=== PATIENT | male | born 1945 | race Caucasian/White ===

== ENCOUNTER 2022-02-12 15:52 | Emergency (ER) | payer MEDICARE, SELFPAY ==
[2022-02-12 15:56] VITALS: BP 114/96; PULSE 65; RESP 16; TEMP 36.7; O2SAT 100; BMI 20.7
[2022-02-12 16:48] VITALS: BP 137/51; PULSE 56; RESP 18; O2SAT 98
--- NOTE | 2022-02-12 16:50 | CT_ITS ---
STUDY: CT BRAIN WITHOUT CONTRAST REASON FOR EXAM: Male, 76 years old. fall/confusion RADIATION DOSAGE (If Supplied By Facility): CTDIvol = ( 47.06 ) mGy, DLP = ( 943.26 ) mGycm TECHNIQUE: Transaxial CT imaging of the brain was performed without administration of intravenous contrast material. Individualized dose optimization techniques were used for this CT. COMPARISON: No relevant priors. FINDINGS: Normal soft tissue structures. Normal calvarium. Calcific plaquing of the cavernous carotids. Mild atrophy and periventricular white matter ischemic changes.. Normal basal ganglia and thalami. Normal brainstem. Normal cerebellum. There is no intracranial hemorrhage. There are no findings of an acute ischemic infarction. Postsurgical changes of the orbits. Normal visualized paranasal sinuses. CT/Brain/Head without Contrast IMPRESSION: Mild atrophy and periventricular white matter ischemic change. No evidence for acute intracranial hemorrhage Electronically Signed: Bradley Peoples MD at 17:18 EST ,
--- NOTE | 2022-02-12 16:51 | EKG12_ITS ---
Test Reason : NEURO S/SX Blood Pressure : / mmHG Vent. Rate : 057 BPM Atrial Rate : 057 BPM P-R Int : 168 ms QRS Dur : 094 ms QT Int : 436 ms P-R-T Axes : 079 -19 027 degrees QTc Int : 424 ms Sinus bradycardia Otherwise normal ECG Confirmed by NEO ROMO, GAVIN ([id number]), social media editor KIRILL VENTURA ([id number]) on 02/15/2022 11:24:45 AM Referred By: Confirmed By:GAVIN LARSON MD
[2022-02-12 16:53] VITALS: BMI 19.9
[2022-02-12] MEDS: 0.9% Normal Saline 1,000 ML 1000 ML IV (16:54)
--- NOTE | 2022-02-12 16:54 | EDS_ITS ---
HPI <CONNOR Pena - Last Filed: 02/12/22 18:52> History of Present Illness Chief Complaint: Neuro S/Sx Narrative Narrative: 76-year-old male with history of osteoporosis, hypertension hyperlipidemia presents to the emergency department for ongoing confusion. Patient states that the patient has been more confused especially over the last 3 or 4 days. This is his third visit to the emergency department. Patient was seen twice at [facility] and released home. Per the , the patient is taking medications that he is not supposed to take at the wrong times, he has had multiple falls with bruising, she is concerned that he may be having a stroke. The patient does admit that he is more confused than usual however he thinks that his is overreacting. Patient denies any weakness. Patient states at that his gait is unsteady. Patient does have bruising. Patient has intermittent chronic pain however nothing specific. [facility] <CONNOR Pena - Last Filed: 02/12/22 18:52> [facility] Medical History (Updated 02/12/22 @ 18:51 by CONNOR Pena) Fall HTN (hypertension) Osteoporosis Home Medications aspirin 81 mg capsule 81 mg PO DAILY 02/12/22 [History Last Taken Unknown] benazepril 20 mg tablet 20 mg PO DAILY 02/12/22 [History Last Taken Unknown] famotidine 40 mg tablet 40 mg PO DAILY 02/12/22 [History Last Taken Unknown] lovastatin 20 mg tablet 20 mg PO QHS 02/12/22 [History Last Taken Unknown] ondansetron HCl 4 mg tablet 4 mg PO Q8H PRN Nausea 02/12/22 [History Last Taken Unknown] Allergy/AdvReac Type Severity Reaction Status Date / Time No Known Allergies Allergy Verified 02/12/22 15:56 Social History Smoking Status: Current every day smoker tobacco type: cigarettes ROS <CONNOR Pena - Last Filed: 02/12/22 18:52> ROS ED ROS Narrative Constitutional: Negative for fever, chills, weight loss. Positive for weakness Eyes: Negative for vision loss, vision change, double vision ENT: Negative for any sore throat, ear pain, congestion Cardiovascular: Negative for any chest pain, tightness, palpitations Respiratory: Negative for any cough, sputum production, hemoptysis, dyspnea, dyspnea on exertion, orthopnea Gastrointestinal: Negative for any abdominal pain, nausea, vomiting, diarrhea, constipation, blood in stool, blood in vomit : Negative for any urinary frequency, dysuria, retention, blood in urine Muscle skeletal: Negative for any muscle joint pain, stiffness, myalgias, arthralgias, neck pain, back pain Neurological: Negative for any headache, syncope, numbness or tingling, dizziness. Positive feeling of unsteady gait Skin: Negative for any rashes, lumps, itching, abrasions, lacerations Psychiatric: Negative for any depression, anxiety, stress, suicidal ideation, homicidal ideation Hematologic: Negative for any easy bruising, excessive bruising, easy bleeding Allergies: Negative for any eczema, hives, rash EXAM <CONNOR Pena - Last Filed: 02/12/22 18:52> Physical Exam Narrative Exam Narrative: Vital signs reviewed. HEET: Head normocephalic atraumatic, TMs clear bilaterally. Posterior pharynx is clear, moist mucous membranes. Nares clear bilaterally. Patient some bruising to the right orbit. Neck: Supple with no lymphadenopathy or tenderness. No signs of meningismus, negative jolt sign. Cardiac: Regular rate and rhythm no murmurs gallops or rubs, equal peripheral pulses bilaterally. Respiratory: Lungs clear to auscultation bilaterally. No chest tenderness. Abdomen: Soft, nontender, nondistended. No abdominal bruit or pulsatile masses. No hepatosplenomegaly Extremities: No peripheral edema, no signs of gross trauma or deformity. Active full range of motion of all extremities. Neuro: Cranial nerves II through XII intact, no focal neurological deficits. NIH score 0. Equal pulses throughout. No neurological focal deficits. Skin: Clean dry and intact with no rash, purpura, petechiae, vesicles or pustules. Backs/flank: No CVA tenderness, no midline spinal tenderness, no deformity. Psych: Normal mood and affect. No SI, HI or acute psychosis. Const Vital Signs: 02/12/22 15:56 02/12/22 16:48 02/12/22 16:55 Temperature 98.0 F Temperature Source Temporal Pulse Rate 65 56 L Respiratory Rate 16 18 Respiratory Effort Normal Non-Labored Respiratory Pattern Normal Blood Pressure 114/96 H 137/51 H Blood Pressure Mean 102 79 Pulse Ox 100 98 Oxygen Delivery Method Room Air Room Air 11/25/22 17:52 02/12/22 19:06 Temperature Temperature Source Pulse Rate 63 Respiratory Rate 14 Respiratory Effort Respiratory Pattern Blood Pressure 139/55 H 158/62 H Blood Pressure Mean 83 Pulse Ox 99 Oxygen Delivery Method Room Air <Dr. Stanford Sainz MD - Last Filed: 02/12/22 19:32> Physical Exam Const Vital Signs: 02/12/22 15:56 02/12/22 16:48 02/12/22 16:55 Temperature 98.0 F Temperature Source Temporal Pulse Rate 65 56 L Respiratory Rate 16 18 Respiratory Effort Normal Non-Labored Respiratory Pattern Normal Blood Pressure 114/96 H 137/51 H Blood Pressure Mean 102 79 Pulse Ox 100 98 Oxygen Delivery Method Room Air Room Air 02/12/22 17:52 02/12/22 19:06 Temperature Temperature Source Pulse Rate 63 Respiratory Rate 14 Respiratory Effort Respiratory Pattern Blood Pressure 139/55 H 158/62 H Blood Pressure Mean 83 Pulse Ox 99 Oxygen Delivery Method Room Air MDM <CONNOR Pena - Last Filed: 02/12/22 18:52> [facility] Lab Data Labs: Laboratory Results - last 24 hr 02/12/22 02/12/22 02/12/22 16:55 16:55 16:55 WBC 7.3 RBC 3.92 L Hgb 12.1 L Hct 37.0 L MCV 94.4 H MCH 30.9 MCHC 32.7 RDW Std Deviation 52.1 H RDW Coeff of Joshua 15.1 H Plt Count 351 MPV 8.9 Immature Gran % (Auto) 1.000 H Neut % (Auto) 80.0 H Lymph % (Auto) 10.7 L Tompkins % (Auto) 6.6 Eos % (Auto) 1.4 Baso % (Auto) 0.3 Absolute Neuts (auto) 5.8 Absolute Lymphs (auto) 0.78 L Nucleated RBC % 0 Sodium 137 Potassium 4.0 Chloride 105 Carbon Dioxide 29.0 Anion Gap 3 L BUN 20 H Creatinine 0.86 Estim Creat Clear Calc 53.52 Est GFR (MDRD) Af Amer 111 Est GFR (MDRD) Non-Af 91 BUN/Creatinine Ratio 23.3 H Glucose 100 Calcium 8.8 Total Bilirubin 0.30 AST 34 ALT 43 Alkaline Phosphatase 61 Troponin I High Sens 10 Total Protein 7.0 Albumin 2.9 L Globulin 4.1 Albumin/Globulin Ratio 0.7 L Lipase 54 L Urine Color Straw Urine Clarity Clear Urine pH 6.0 Ur Specific Mes[place] 1.010 Urine Protein Negative Urine Glucose (UA) Normal Urine Ketones Negative Urine Occult Blood Negative Urine Nitrite Negative Urine Bilirubin Negative Urine Urobilinogen Normal Ur Leukocyte Esterase Negative Urine RBC 0 SEEN Urine WBC 0-5 SEEN Ur Squamous Epith Cells 0 SEEN Urine Bacteria 0 SEEN Urine Mucus 0 SEEN Radiography Diagnostic Testing: Clinical Impression(s) from Imaging Studies Brain CT 02/12/22 16:50 IMPRESSION: Mild atrophy and periventricular white matter ischemic change. 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 No acute cardiopulmonary pathology Electronically Signed: Bradley Peoples MD at 17:45 EST , Treatment and Re-Evaluation Narrative: Patient appears well, patient appears nontoxic, vital signs are stable. Patient presents to the emergency department for frequent falls, periods of confusion per the . Patient's physical examination was grossly unremarkable. NIH score 0. Patient was alert and orient x4 here. Patient has steady gait here. Patient did receive a full work-up. EKG was unremarkable. Patient did receive a CT scan of the brain which showed no acute findings. Patient's chest x-ray interpreted by ER present shows mild COPD however no acute cardiopulmonary pathology. Patient's laboratory studies show slight anemia with a hemoglobin of 12.1, patient's chemistries were unremarkable patient's lipase was negative. Patient did receive COVID-19, influenza test, this was negative. Patient urinalysis was negative for any infection. At this time, there is no evidence of CVA/TIA, cardiopulmonary disease, infectious disease process. Patient's amb ulatory gait was stable here. At this time, I believe the patient is suffering from early dementia and the is frustrated. She will follow-up closely with her PCP. They instructed to return for any worsening symptoms. <Dr. Stanford Sainz MD - Last Filed: 02/12/22 19:32> [facility] Narrative Medical decision making narrative: I have personally performed a face to face assessment of the patient and have reviewed the ZULEMA Note. I performed a substantive portion of the visit including all aspects of the following. My wilburn findings include: History is remarkable for increased confusion over the past several weeks to months. He has outpatient test scheduled. This includes a stress test. He has been more forgetful. He does not have history of Alzheimer's dementia. He denies alcohol use. He denies any constitutional symptoms. Nuys weight loss or weight gain. Nuys double vision blurred vision loss of vision. Nuys trouble speech or swallowing. Denies problems with coordination or balance. He denies paresthesia, anesthesia medics upper lower extremity exam Exam is unremarkable. HEENT exams unremarkable. There is no nystagmus. There is no APD. Pupils equal round reactive. Extract muscle intact. Neck is supple. There is no carotid bruits. Heart lung exam is unremarkable. Alert oriented. Motor 5/5. Sensation intact. DTR symmetric no clonus Babinski sign. There is no dysmetria. Romberg with eyes open and close normal. The eye askew test and the hint test were negative. Gait was observed and normal. Tandem gait is normal. He is able to walk on heels and toes and able to walk backwards without difficulty. Medical Decision Making patient had a metabolic infectious work-up obtained that was unremarkable including CAT scan. and patient were told that his confusion is not because of stroke but for other reasons. Other additions or changes: Reviewed midlevel's chart and no corrections. Lab Data Labs: Laboratory Results - last 24 hr 02/12/22 02/12/22 02/12/22 16:55 16:55 16:55 WBC 7.3 RBC 3.92 L Hgb 12.1 L Hct 37.0 L MCV 94.4 H MCH 30.9 MCHC 32.7 RDW Std Deviation 52.1 H RDW Coeff of Joshua 15.1 H Plt Count 351 MPV 8.9 Immature Gran % (Auto) 1.000 H Neut % (Auto) 80.0 H Lymph % (Auto) 10.7 L Tompkins % (Auto) 6.6 Eos % (Auto) 1.4 Baso % (Auto) 0.3 Absolute Neuts (auto) 5.8 Absolute Lymphs (auto) 0.78 L Nucleated RBC % 0 Sodium 137 Potassium 4.0 Chloride 105 Carbon Dioxide 29.0 Anion Gap 3 L BUN 20 H Creatinine 0.86 Estim Creat Clear Calc 53.52 Est GFR (MDRD) Af Amer 111 Est GFR (MDRD) Non-Af 91 BUN/Creatinine Ratio 23.3 H Glucose 100 Calcium 8.8 Total Bilirubin 0.30 AST 34 ALT 43 Alkaline Phosphatase 61 Troponin I High Sens 10 Total Protein 7.0 Albumin 2.9 L Globulin 4.1 Albumin/Globulin Ratio 0.7 L Lipase 54 L Urine Color Straw Urine Clarity Clear Urine pH 6.0 Ur Specific [place] 1.010 Urine Protein Negative Urine Glucose (UA) Normal Urine Ketones Negative Urine Occult Blood Negative Urine Nitrite Negative Urine Bilirubin Negative Urine Urobilinogen Normal Ur Leukocyte Esterase Negative Urine RBC 0 SEEN Urine WBC 0-5 SEEN Ur Squamous Epith Cells 0 SEEN Urine Bacteria 0 SEEN Urine Mucus 0 SEEN Radiography Diagnostic Testing: Clinical Impression(s) from Imaging Studies Brain CT 02/12/22 16:50 IMPRESSION: Mild atrophy and periventricular white matter ischemic change. 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 No acute cardiopulmonary pathology Electronically Signed: Bradley Peoples MD at 17:45 EST , Discharge Plan Triage Chief Complaint: Neuro S/Sx ED Midlevel Provider: Papa Pantoja ED Provider: Stanford Sainz Dx/Rx/DC Orders Clinical Impression: Dementia, CHI (closed head injury) Instructions: Dementia Caregiver Tips, Delirium and Dementia, ED Head Injury (Adult) Prescriptions: No Action ondansetron HCl 4 mg tablet 4 mg PO Q8H PRN (Reason: Nausea) Label Comments: TAKE 1 TABLET BY MOUTH EVERY 6 HOURS FOR 5 DAYS NEEDED FOR NAUSEA AND VOMITING famotidine 40 mg tablet 40 mg PO DAILY benazepril 20 mg tablet 20 mg PO DAILY Label Comments: 1 TABLET BY MOUTH EVERY DAY FOR 5 DAYS STOP AMLODIPINE WHILE ON PAXLOVID lovastatin 20 mg tablet 20 mg PO QHS aspirin 81 mg Capsule 81 mg PO DAILY Primary Care Provider: Robert Pires Referrals: Robert Pires DO [Primary Care Provider] - Activity Restrictions/Additional Instructions: You need to follow-up with your PCP regarding these personality changes. Disposition Disposition: Home, Self Care Discharge Date/Time: 02/12/22 19:07
[2022-02-12 17:05] LABS: Bacteria 0 SEEN /hpf (None Seen); Mucous, Urine 0 SEEN /hpf (<or=2+); Red Blood Cells-Urine 0 SEEN /hpf (0-5); Squamous Epithelial Cells - UA 0 SEEN /hpf (0-5)
--- NOTE | 2022-02-12 17:05 | RAD_ITS ---
STUDY: X-RAY CHEST REASON FOR EXAM: Male, 76 years old. Confusion TECHNIQUE: AP portable COMPARISON: None. FINDINGS: Lungs are mildly hyperinflated but clear.. Mild chronic interstitial and emphysematous changes in the upper lobes. Tiny calcified granuloma in right upper lobe There is no demonstrated pleural abnormality. Normal size heart. Normal mediastinum and cara. Normal visualized pulmonary arteries. Mildly calcified aortic arch and descending thoracic aorta. Dorsal spine demonstrates degenerative change. Normal visualized ribs, clavicles, and shoulders. There is no demonstrated abnormality of the visualized soft tissue structures of the upper abdomen. 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 No acute cardiopulmonary pathology Electronically Signed: Bradley Peoples MD at 17:45 EST ,
[2022-02-12 17:07] LABS: Absolute Lymphocyte Count 0.78 X10^3/uL (0.83-4.51); Absolute Neutrophil Count 5.8 X10^3/uL (2.0-7.7); Basophil# 0.02 X10^3/uL; Basophil% 0.3 % (0-1); Eosinophils% 1.4 % (0-5); Hemoglobin 12.1 g/dL (13.0-16.5); Lymphocyte # 0.78 X10^3/ul (0.83-4.51); Lymphocyte % 10.7 % (19-41); Mean Corp Hgb Conc 32.7 g/dL (32-36); Mean Corpuscular Hgb 30.9 pg (27.0-32.0); Mean Corpuscular Volume 94.4 fL (80-94); Mean Platelet Vol. 8.9 fl (6.2-12.0); Monocyte# 0.48 X10^3/uL; Monocyte% 6.6 % (0-10); NRBC Flagged by Analyzer 0 % (0-5); Neutrophil # 5.84 X10^3/uL (2.7-7.7); Platelet Count 351 K/mm3 (150-450); RBC Distribution Width CV 15.1 % (11.6-14.6); RBC Distribution Width SD 52.1 fl (35.1-43.9); Red Blood Count 3.92 M/mm3 (4.6-6.2); White Blood Count 7.3 K/mm3 (4.4-11.0)
[2022-02-12 17:16] LABS: Color, Urine Straw (Yellow); Glucose, Dipstick Normal (Normal); Ketone-Dipstick Negative (Negative); Leukocyte Esterase-Dipstick Negative /ul (Negative); Nitrite-Dipstick Negative (Negative); Occult Blood-Urine Negative /ul (Negative); Protein-Dipstick Negative (Negative); Urine Bilirubin Dipstick Negative (Negative); Urine Clarity Clear (Clear); Urine Urobilinogen Normal (Normal)
[2022-02-12 17:30] LABS: ALB/GLOB Ratio 0.7 RATIO (0.9-2.4); AST(SGOT) 34 U/L (15-37); Alanine Aminotransfer ALT/SGPT 43 U/L (16-61); Albumin, Serum 2.9 g/dL (3.2-5.0); Alkaline Phosphatase 61 U/L (45-117); Anion Gap 3 (5-15); BUN 20 mg/dL (7-18); BUN/Creat Ratio 23.3 RATIO (10-20); Calcium,Total 8.8 mg/dL (8.5-10.1); Chloride 105 mmol/L (98-107); Creatinine, Serum 0.86 mg/dL (0.70-1.30); EST Glomerular Filtration Rate 91 mL/min (>60); Est Glom Filt Rate - Afr Amer 111 mL/min (>60); Estimated Creatinine Clearance 53.52 ml/min; Globulin 4.1 g/dL (2.2-4.2); Glucose 100 mg/dL (74-106); Lipase 54 U/L (73-393); Sodium Level 137 mmol/L (136-145); Troponin-I HS 10 pg/mL (3.0-78.0)
[2022-02-12 17:38] LABS: White Blood Cells 0-5 SEEN /hpf (0-5)
[2022-02-12 17:52] VITALS: BP 139/55; PULSE 63; RESP 14; O2SAT 99
[2022-02-12 19:06] VITALS: BP 158/62
== END 2022-02-12 19:07 | disposition home or self-care (01) ==
PROVIDERS: Nurse Practitioner; Emergency Provider Emergency Medicine; PCP Student in an Organized Health Care Education/Training Program; Visit Provider Emergency Medicine
DX: S09.90XA Unspecified injury of head, initial encounter (principal); F03.90 Unspecified dementia, unspecified severity, without behavioral disturbance, psychotic disturbance, mood disturbance, and anxiety; R26.81 Unsteadiness on feet; F17.210 Nicotine dependence, cigarettes, uncomplicated; G89.29 Other chronic pain; R41.0 Disorientation, unspecified; I10 Essential (primary) hypertension; Z79.82 Long term (current) use of aspirin; X58.XXXA Exposure to other specified factors, initial encounter
CPT/HCPCS: 70450; 71045; 80053; 81001; 83690; 84484; 85025; 87428; 93005; 96360; 99283; J7030; A4216

== ENCOUNTER 2022-02-14 13:53 | Emergency (ER) | payer MEDICARE, SELFPAY ==
[2022-02-14 13:54] VITALS: BP 112/49; PULSE 79; RESP 20; TEMP 37.1; O2SAT 96; BMI 19.7
--- NOTE | 2022-02-14 14:30 | EKG12_ITS ---
Test Reason : SOB Blood Pressure : / mmHG Vent. Rate : 067 BPM Atrial Rate : 067 BPM P-R Int : 166 ms QRS Dur : 092 ms QT Int : 402 ms P-R-T Axes : 083 -34 032 degrees QTc Int : 424 ms Normal sinus rhythm Left axis deviation Incomplete right bundle branch block Abnormal ECG Confirmed by NEO ROMO, GAVIN ([id number]), editor dictionary KIRILL VENTURA ([id number]) on 02/15/2022 12:06:12 PM Referred By: Confirmed By:GAVIN LARSON MD
--- NOTE | 2022-02-14 14:31 | ED.VIS.DYS ---
HPI History of Present Illness Chief Complaint: Shortness of Breath Informant: patient and spouse/S.O. Onset/Context/Timing Onset: Today and Yesterday Context: gradual Timing: Intermittent Current Severity: Mild Maximum Severity: Mild Worsened by: Coughing Associated Symptoms cough; Negative for rhinorrhea, ear pain, fever, sore throat, subjective, clear sputum, white sputum, yellow sputum or green sputum Chest Pain: Positive for None Narrative Narrative: 76-year-old male history of COPD and a right bundle branch block. States since last night he has had more shortness of breath. No chest pain. No fever or chills. No hemoptysis. No leg pain or swelling. Denies any nausea or vomiting or diarrhea. No melena. PE Risk Factors: Negative for Cancer, OCP + Smoking + > 35, Prior DVT or PE, Recent immobilization, Recent surgery or Recent travel Prior similar symptoms: Yes Recent Illness/Hospitalization: No PFSH PFSH Medical History (Updated 02/14/22 @ 15:[address] Jace Saenz MD) COPD (chronic obstructive pulmonary disease) Fall HTN (hypertension) Osteoporosis Home Medications aspirin 81 mg capsule 81 mg PO DAILY 02/12/22 [History Last Taken Unknown] benazepril 20 mg tablet 20 mg PO DAILY 02/12/22 [History Last Taken Unknown] famotidine 40 mg tablet 40 mg PO DAILY 02/12/22 [History Last Taken Unknown] lovastatin 20 mg tablet 20 mg PO QHS 02/12/22 [History Last Taken Unknown] ondansetron HCl 4 mg tablet 4 mg PO Q8H PRN Nausea 02/12/22 [History Last Taken Unknown] prednisone 20 mg tablet 40 mg PO DAILY 7 days #14 tabs 02/14/22 [Rx Last Taken Unknown] Allergy/AdvReac Type Severity Reaction Status Date / Time No Known Allergies Allergy Verified 02/14/22 13:54 Social History Smoking Status: Current every day smoker tobacco type: cigarettes ROS ROS ED ROS Narrative Dyspnea. Review of Systems ROS Unobtainable: Denies due to encephalopathy Constitutional Constitutional ED: Denies chills or fever(s) Eyes Eyes: Denies blurry vision ENT ENT ED: Denies ear pain Cardiovascular Cardiovascular: Denies chest pain or palpitations Respiratory/Chest Respiratory/Chest: Reports cough and dyspnea Gastrointestinal Gastrointestinal: Denies abdominal pain Genitourinary Genitourinary ED: Denies dysuria or hematuria Musculoskeletal Musculoskeletal: Denies arthralgias or back pain Integumentary Denies abscess Neurologic Neurologic: Denies headache(s) Psychiatric Psychiatric: Denies anxiety Endocrine Endocrinology: Denies cold intolerance Hematologic/Lymphatic Hematologic/Lymphatic: Denies easy bleeding or easy bruising Allergic/Immunologic Allergic/Immunologic ED: Denies mouth swelling or tongue swelling EXAM Physical Exam Narrative Exam Narrative: -year-old male vital signs stable afebrile. Pulse ox 96% on room air no signs hypoxia. No distress. present in room. H EENT exam unremarkable. Neck nontender no JVD no lymphadenopathy. Lungs prolonged expiratory phase. Few scattered expiratory wheezes. No rales or rhonchi. No distress. Heart regular rate and rhythm rate about 80 no murmur. Abdomen soft nontender. Moving all 4 extremities. Calves are nontender without edema or cords. Back nontender. Neurologically is awake and alert. Const Vital Signs: 02/14/22 13:54 02/14/22 14:43 02/14/22 14:50 Temperature 98.7 F Temperature Source Temporal Pulse Rate 79 67 Respiratory Rate 20 H 20 H Respiratory Effort Short of Breath Respiratory Depth Normal Respiratory Pattern Irregular Blood Pressure 112/49 L Blood Pressure Mean 70 Pulse Ox 96 Oxygen Delivery Method Room Air Oxygen Flow Rate (L/min) 02/14/22 14:51 02/14/22 15:31 Temperature Temperature Source Pulse Rate 70 Respiratory Rate 20 H Respiratory Effort Respiratory Depth Respiratory Pattern Blood Pressure 129/51 H Blood Pressure Mean 77 Pulse Ox Oxygen Delivery Method Room Air Oxygen Flow Rate (L/min) 96 Positive well nourished and well developed; Negative for obese, cachectic, contractures or unkempt General Appearance ED: well developed and NAD; Negative for unkempt, cachectic, contractures or pallor Nutritional Appearance: Negative for cachectic or obese HEENT Reports moist mucous membranes; Denies dry mucous membranes atraumatic; Negative for trauma or tenderness Mouth ED: No dry mucous membranes Mouth: No dry mucous membranes Eyes PERRL and EOMs intact bilaterally General Eye ED: Negative for pale conjunctiva or scleral icterus Neck no lymphadenopathy, supple, no meningeal signs and no JVD General: Negative for tenderness Lymph Lymphatic: Negative for other Resp normal respiratory effort and No clear to auscultation bilaterally Resp Narrative: Right lower expiratory phase. Few scattered expiratory wheezes. Effort and Inspection: Negative for pain with movement Auscultation: wheezes; Negative for rales, rhonchi or diminished lung sounds Cardio regular rate, regular rhythm, S1 normal heart sound, S2 normal heart sound and no murmurs Rate: Negative for bradycardia or tachycardic GI non-tender, non-distended and no masses Auscultation: normoactive bowel sounds Palpation: soft; Negative for tender or guarding Back/Spine no CVA tenderness and normal to inspection General Back: Negative for CVA tenderness or tenderness Extremity normal to inspection General Extremety ED: Negative for edema or tenderness General Extremity: Negative for edema Neuro oriented x3 and CN's II-XII intact bilaterally Sensorium / Orientation: alert, oriented to person, oriented to place and oriented to time; Negative for orientation impaired, confused, lethargic or stuporous Speech: speech normal Motor Exam: strength 5/5 throughout Psych mental status grossly normal Appearance: Negative for unkempt Attitude: No agitated Mood & Affect: Negative for depressed Thought Process: normal thought process Skin no wounds and skin turgor normal General Skin Exam: Negative for jaundice or pallor Lesions: no lesions Rashes: no rashes Trauma: Negative for abrasion or laceration MDM MDM MDM Narrative Medical decision making narrative: 76-year-old male with shortness of breath history of COPD. Screening labs, x-ray and EKG being performed. Treated with oral prednisone, DuoNeb and albuterol aerosols. Repeat exam patient doing well at 3:38 PM. Patient doing well. Breathing improved after aerosols and steroid. Discharged home with prescription for prednisone. Lab Data Attestation: I reviewed the patient's lab results. Lab results narrative: CBC shows white count 13.3. H&H 11.4 and 33.5. Platelets 325. Electrolytes unremarkable gap of 5 BUN of 25 creatinine 0.8. Glucose 162. Troponin 7. Chest x-ray chronic changes. Patient has a baseline anemia on prior labs. Labs: Laboratory Results - last 24 hr 02/14/22 02/14/22 14:50 14:50 WBC 13.3 H RBC 3.60 L Hgb 11.4 L Hct 33.5 L MCV 93.1 MCH 31.7 MCHC 34.0 RDW Std Deviation 51.5 H RDW Coeff of Joshua 14.9 H Plt Count 325 MPV 9.2 Immature Gran % (Auto) 0.500 Neut % (Auto) 88.6 H Lymph % (Auto) 6.7 L Sebastian % (Auto) 3.5 Eos % (Auto) 0.5 Baso % (Auto) 0.2 Absolute Neuts (auto) 11.8 H Absolute Lymphs (auto) 0.89 Nucleated RBC % 0 Sodium 138 Potassium 4.0 Chloride 106 Carbon Dioxide 27.0 Anion Gap 5 BUN 25 H Creatinine 0.82 Estim Creat Clear Calc 55.66 Est GFR (MDRD) Af Amer 117 Est GFR (MDRD) Non-Af 97 BUN/Creatinine Ratio 30.5 H Glucose 162 H Calcium 8.3 L Troponin I High Sens 7 Radiography Chest X-Ray - ED: 1 View, Read by ED Physician, Read by Radiologist, Heart, Lungs, Mediastinum, Bony Structures, No Acute Disease and Chronic Changes Diagnostic Testing: Clinical Impression(s) from Imaging Studies Chest X-Ray 02/14/22 15:05 IMPRESSION: No acute cardiopulmonary process identified. Chronic changes of the lungs. Electronically Signed: Lolita Tobias MD at 15:13 EST , X-ray, portable, single view interpreted both by myself and radiologist shows chronic changes consistent with COPD. No acute infiltrate. Rhythm Strip Rhythm Strip: Sinus Rhythm Rate: 67 Ectopy: None EKG Initial EKG: Interpretation: Sinus Rhythm and No Acute Injury Pattern Comments: Normal sinus rhythm rate of 67 no acute signs of OH or ischemia. Discharge Plan Triage Chief Complaint: Shortness of Breath ED Provider: Jace Saenz Dx/Rx/DC Orders Clinical Impression: COPD with acute exacerbation Instructions: ED COPD Flare Prescriptions: New prednisone 20 mg tablet 40 mg PO DAILY 7 Days Qty: 14 0RF No Action ondansetron HCl 4 mg tablet 4 mg PO Q8H PRN (Reason: Nausea) Label Comments: TAKE 1 TABLET BY MOUTH EVERY 6 HOURS FOR 5 DAYS NEEDED FOR NAUSEA AND VOMITING famotidine 40 mg tablet 40 mg PO DAILY benazepril 20 mg tablet 20 mg PO DAILY Label Comments: 1 TABLET BY MOUTH EVERY DAY FOR 5 DAYS STOP AMLODIPINE WHILE ON PAXLOVID lovastatin 20 mg tablet 20 mg PO QHS aspirin 81 mg Capsule 81 mg PO DAILY Primary Care Provider: Robert Pires Referrals: Robert Pires, [Primary Care Provider] - 1 Week if not improving Activity Restrictions/Additional Instructions: Prednisone daily take at lunchtime for the next 7 days. Follow-up with your doctor as needed. Use your inhaler at home as needed. Disposition Disposition: Home, Self Care
[2022-02-14] MEDS: Ipratropium/Albuterol Sulfate 3 ML AMPUL.NEB INHALATION (14:42)
[2022-02-14] MEDS: Albuterol 2.5 MG/3 ML VIAL.NEB. INHALATION (14:42)
[2022-02-14 14:43] VITALS: PULSE 67; RESP 20
[2022-02-14] MEDS: predniSONE 20 MG Tablet 60 MG PO (14:49)
[2022-02-14 14:58] LABS: Absolute Lymphocyte Count 0.89 X10^3/uL (0.83-4.51); Absolute Neutrophil Count 11.8 X10^3/uL (2.0-7.7); Basophil# 0.02 X10^3/uL; Basophil% 0.2 % (0-1); Eosinophil# 0.06 X10^3/uL; Eosinophils% 0.5 % (0-5); Hematocrit 33.5 % (40-54); Hemoglobin 11.4 g/dL (13.0-16.5); Lymphocyte # 0.89 X10^3/ul (0.83-4.51); Lymphocyte % 6.7 % (19-41); Mean Corpuscular Hgb 31.7 pg (27.0-32.0); Mean Corpuscular Volume 93.1 fL (80-94); Mean Platelet Vol. 9.2 fl (6.2-12.0); Monocyte# 0.46 X10^3/uL; Monocyte% 3.5 % (0-10); NRBC Flagged by Analyzer 0 % (0-5); Neutrophil # 11.79 X10^3/uL (2.7-7.7); Neutrophil % 88.6 % (47-70); Platelet Count 325 K/mm3 (150-450); RBC Distribution Width CV 14.9 % (11.6-14.6); RBC Distribution Width SD 51.5 fl (35.1-43.9); White Blood Count 13.3 K/mm3 (4.4-11.0)
--- NOTE | 2022-02-14 15:05 | RAD_ITS ---
HISTORY: chest pain. TECHNIQUE: XR Chest 1 View. COMPARISON: 02/12/2022. FINDINGS: CARDIOMEDIASTINAL BORDERS: Cardiac silhouette within normal limits in size. Mediastinal contour unremarkable with calcification of the aorta. LUNGS: Hyperinflated lungs with mild chronic interstitial scarring. PLEURA: No pleural effusion or pneumothorax seen. OSSEOUS STRUCTURES: Degenerative change. RAD/Chest 1 View (Portable) IMPRESSION: No acute cardiopulmonary process identified. Chronic changes of the lungs. Electronically Signed: Lolita Tobias MD at 15:13 EST ,
[2022-02-14 15:25] LABS: Anion Gap 5 (5-15); BUN 25 mg/dL (7-18); BUN/Creat Ratio 30.5 RATIO (10-20); Calcium,Total 8.3 mg/dL (8.5-10.1); Chloride 106 mmol/L (98-107); Creatinine, Serum 0.82 mg/dL (0.70-1.30); EST Glomerular Filtration Rate 97 mL/min (>60); Est Glom Filt Rate - Afr Amer 117 mL/min (>60); Estimated Creatinine Clearance 55.66 ml/min; Glucose 162 mg/dL (74-106); Sodium Level 138 mmol/L (136-145); Troponin-I HS (w/2H Reflex) 7 pg/mL (3.0-78.0)
[2022-02-14 15:31] VITALS: BP 129/51; PULSE 70; RESP 20
[2022-02-14 16:03] VITALS: BP 124/56; PULSE 66; RESP 27
[2022-02-14 16:54] LABS: Reflex Troponin-HS? (from REC) Y
== END 2022-02-14 16:08 | disposition home or self-care (01) ==
PROVIDERS: Emergency Provider Emergency Medicine; PCP Student in an Organized Health Care Education/Training Program; Visit Provider Emergency Medicine
DX: J44.1 Chronic obstructive pulmonary disease with (acute) exacerbation (principal); I10 Essential (primary) hypertension; F17.210 Nicotine dependence, cigarettes, uncomplicated; R06.02 Shortness of breath; I45.10 Unspecified right bundle-branch block
CPT/HCPCS: 71045; 80048; 84484; 85025; 93005; 94640; 99284; A4216

== ENCOUNTER → 2022-04-13 | Outpatient (CLI) | payer MEDICARE, SELFPAY ==
--- NOTE | 2022-04-14 11:28 | PFT ---
INTRODUCTION: The patient is a 77-year-old male that presents for pulmonary function studies secondary to a diagnosis of emphysema. Respiratory therapy reported good patient effort. Bronchodilators were used during testing. INTERPRETATION: Forced expiration spirometry demonstrates the presence of a severe large airways obstructive ventilatory defect. There was a significant response to aerosolized bronchodilators. Spirograms are of fair quality but do not plateau indicating slow emptying of the lungs. Body plethysmography was performed and demonstrated lung volumes to be within normal limits. Diffusing capacity by single breath CO was also within normal limits. IMPRESSION: Partially reversible severe large airways obstructive ventilatory defect with preserved lung volumes and diffusing capacity.
== END | disposition home or self-care (01) ==
PROVIDERS: PCP Student in an Organized Health Care Education/Training Program; Referring Provider Internal Medicine; Visit Provider Internal Medicine
DX: J43.9 Emphysema, unspecified (principal)
CPT/HCPCS: 94060; 94726; 94729

== ENCOUNTER → 2022-07-28 | Outpatient (CLI) | payer MEDICARE, SELFPAY ==
--- NOTE | 2022-07-28 09:50 | RAD_ITS ---
STUDY: X-RAY - ESOPHAGUS (BARIUM SWALLOW) WITH FLUOROSCOPY REASON FOR EXAM: Male, 77 years old. GERD TECHNIQUE: 17 view(s) of the esophagus were obtained following swallowing of barium. FLUOROSCOPY TIME (if supplied): (35 seconds.) minutes/seconds. 3.3 mGy COMPARISON: None. FINDINGS: There is no demonstrated esophageal foreign body. There is no demonstrated stricture or mucosal abnormality. Normal gastroesophageal junction, without a demonstrated hiatal hernia. No evidence of gastroesophageal reflux. The patient ingested a 12 mm tablet of barium. The tablet is trapped at the gastroesophageal junction. There is atherosclerotic calcification of the aortic arch with tortuosity of the descending aorta. Normal visualized pulmonary parenchyma. There are diffuse degenerative changes of the visualized thoracic spine. RAD/Esophagus Dual Contrast IMPRESSION: The patient ingested a 12 mm tablet of barium. The tablet is trapped at the gastroesophageal junction. No evidence of gastroesophageal reflux. Electronically Signed: Jarett Klein MD at 15:23 EDT ,
== END | disposition home or self-care (01) ==
LOC: RAD 09:38
PROVIDERS: PCP Student in an Organized Health Care Education/Training Program; Referring Provider Otolaryngology; Visit Provider Otolaryngology
DX: K21.9 Gastro-esophageal reflux disease without esophagitis (principal); R49.0 Dysphonia
CPT/HCPCS: 74221

== ENCOUNTER → 2022-09-30 | Outpatient (CLI) | payer MEDICARE, OTHER, SELFPAY ==
--- NOTE | 2022-10-01 09:21 | PFT ---
INTRODUCTION: The patient is a 77-year-old male that presents for pulmonary function studies secondary to a diagnosis of COPD. Respiratory therapy reported good patient effort. Bronchodilators were used during testing. INTERPRETATION: Forced expiration spirometry demonstrated the presence of a moderately severe large airways obstructive ventilatory defect. There was no significant response to aerosolized bronchodilators. Spirograms are of fair quality but do not plateau indicating slow emptying of the lungs. There has been interval improvement in the patient's PFT since March 2022. IMPRESSION: Irreversible moderately severe large airways obstructive ventilatory defect.
== END | disposition home or self-care (01) ==
PROVIDERS: PCP Student in an Organized Health Care Education/Training Program; Referring Provider Internal Medicine; Visit Provider Internal Medicine
DX: J44.9 Chronic obstructive pulmonary disease, unspecified (principal)
CPT/HCPCS: 94060

== ENCOUNTER → 2022-10-28 | Outpatient (CLI) | payer MEDICARE, OTHER, SELFPAY ==
--- NOTE | 2022-10-28 13:11 | CT_ITS ---
INDICATION: smoker quit 03/2022 1PPD X 20YRS, 3 CIGARS/DAY X 25 YRS, HTN, ASTHMA, COPD, EMPHYSEMA, SOB ON EXCERTION EXAMINATION: - CT Low Dose CT Chest for Lung Cancer Screening A radiation dose optimization technique was used for this scan. Radiation CTDIvol 2.01 Radiation DLP 76.00 COMPARISON: Chest radiograph 02/14/2022. FINDINGS: Low dose Noncontrast serial CT axial images through the chest with coronal and sagittal reformatted series. MEDIASTINUM: Dense coronary artery atherosclerotic calcifications. Noncontrast mediastinum is otherwise unremarkable. LUNG PARENCHYMA: No acute pulmonary parenchymal abnormality. Severe diffuse emphysematous lung changes. Thin linear biapical scarring. 4 mm posterior left apical pulmonary nodule on axial image 31 of series 2. PLEURA: No pleural effusion. No pneumothorax. BONES: Osseous structures are unremarkable for age. UPPER ABDOMEN: Unremarkable. CT/Low Dose CT Lung Screening IMPRESSION: Severe diffuse emphysematous lung changes. 4 mm posterior left apical pulmonary nodule as above. Thin linear biapical scarring. Lung-RADS CATEGORY 2: Benign Appearance Nodule. Annual screening with low dose CT in 12 months. Electronically Signed: Isaac Warner MD at 0:38 EDT ,
== END | disposition home or self-care (01) ==
PROVIDERS: PCP Student in an Organized Health Care Education/Training Program; Referring Provider Nurse Practitioner Acute Care; Visit Provider Nurse Practitioner Acute Care
DX: Z12.2 Encounter for screening for malignant neoplasm of respiratory organs (principal); F17.210 Nicotine dependence, cigarettes, uncomplicated
CPT/HCPCS: 71271

== ENCOUNTER → 2023-10-21 | Outpatient (CLI) | payer MEDICARE, OTHER, SELFPAY ==
[2023-10-21 12:50] LABS: Anion Gap 5 (5-15); BUN 35 mg/dL (7-18); BUN/Creat Ratio 32.4 RATIO (10-20); Calcium,Total 9.9 mg/dL (8.5-10.1); Chloride 109 mmol/L (98-107); Cholesterol 176 mg/dL (200); Creatinine, Serum 1.08 mg/dL (0.70-1.30); EST Glomerular Filtration Rate 70 mL/min (>60); Est Glom Filt Rate - Afr Amer 85 mL/min (>60); Glucose 105 mg/dL (74-106); High Density Lipoprotein 54 mg/dL; PSA,Total - Annual Screen 3.48 ng/mL (0.00-4.00); Potassium 4.1 mmol/L (3.5-5.1); Sodium Level 140 mmol/L (136-145); Triglycerides 81 mg/dL; Very Low Density Lipoprotein 16 mg/dL (5-40)
== END | disposition home or self-care (01) ==
LOC: MFPLAB 10:08
PROVIDERS: PCP Family Medicine; Visit Provider Family Medicine
DX: Z00.00 Encounter for general adult medical examination without abnormal findings (principal); Z12.5 Encounter for screening for malignant neoplasm of prostate; Z13.6 Encounter for screening for cardiovascular disorders
CPT/HCPCS: 36415; 80048; 80061; 84153; G0103

== ENCOUNTER → 2023-11-02 | Outpatient (CLI) | payer MEDICARE, OTHER, SELFPAY ==
--- NOTE | 2023-11-02 13:55 | CT_ITS ---
STUDY: LOW DOSE CT LUNG CANCER SCREENING REASON FOR EXAM: Male, 78 years old. Patient smoked 1 pack per day for 59 years. COPD. Shortness of breath. RADIATION DOSAGE (If Supplied By Facility): CTDIvol = ( 1.59 ) mGy, DLP = ( 58.78 ) mGycm TECHNIQUE: No contrast was administered. Low dose technique was utilized (average mAS-38 and kVp 120). 1.25 mm axial source images with a slice interval of 1.25-mm were reconstructed in lung windows. 2.5 mm axial source images with a slice interval of 2.5-mm were reconstructed in lung windows. 5.0 mm axial source images with a slice interval of 5.0-mm were reconstructed in soft tissue windows. COMPARISON: Comparison is made with prior study October 28, 2022. NODULES: Stable 3 mm noncalcified nodule in the peripheral lateral aspect of the left upper lobe. Emphysema: Hyperinflation. Diffuse emphysematous changes with the bullous formation more prominent in the upper lobes. Stable scarring in the upper lobes. Endobronchial lesion: None Aorta: Atherosclerotic plaque formation of the aortic arch. CORONARY ARTERIES: Coronary artery calcification is seen. Heart: Unremarkable Pulmonary artery: Unremarkable Mediastinal nodes: Unremarkable Other chest and abdominal findings: CT/Low Dose CT Lung Screening IMPRESSION: Lung-RADS category 2 - Continue annual screening with LDCT in 12 months. IMPORTANT NOTES FOR USE: ACR Lung-RADS Version 1.1 Assessment Categories Release Date: 2018 Category: Coded 0-4 bases on nodule(s) with highest degree of suspicion. Negative screen is defined as categories 1 and 2; a positive screen is defined as categories 3 and 4. Category 3 and 4A nodules that are unchanged on interval CT should be coded as category 2, and individuals returned to screening in 12 months. Category 4X: Category 3 or 4 nodules with additional imaging findings that increase the suspicion of lung cancer, such as spiculation, GGN that doubles in size in 1 year, enlarged lymph notes, etc. Category Modifiers: S (significant finding unrelated to lung cancer) Electronically Signed: Jarett Klein MD at 10:23 EDT ,
== END | disposition home or self-care (01) ==
LOC: CT 13:50
PROVIDERS: PCP Family Medicine; Referring Provider Nurse Practitioner Acute Care; Visit Provider Nurse Practitioner Acute Care
DX: F17.210 Nicotine dependence, cigarettes, uncomplicated (principal)
CPT/HCPCS: 71271

== ENCOUNTER → 2024-03-28 | Outpatient (CLI) | payer MEDICARE, OTHER, SELFPAY ==
--- NOTE | 2024-03-28 10:32 | RAD_ITS ---
STUDY: X-RAY - LEFT SHOULDER REASON FOR EXAM: Male, 79 years old. PAIN TECHNIQUE: 4 views of the left shoulder. COMPARISON: None. FINDINGS: Normal glenohumeral articulation. There is mild acromioclavicular arthrosis. Normal acromion. Normal humeral head and visualized proximal humerus. The soft tissue structures are unremarkable. There is no demonstrated fracture. Normal visualized pulmonary apex. RAD/Shoulder min 2 Views IMPRESSION: Mild acromioclavicular arthrosis. No demonstrated fracture. Electronically Signed: Andrew Duron MD at 10:14 EST ,
== END | disposition home or self-care (01) ==
LOC: MTRAD 10:31
PROVIDERS: PCP Family Medicine; Referring Provider Family Medicine; Visit Provider Family Medicine
DX: M25.512 Pain in left shoulder (principal)
CPT/HCPCS: 73030

== ENCOUNTER → 2024-05-07 | Outpatient (CLI) | payer MEDICARE, OTHER, SELFPAY ==
--- NOTE | 2024-05-07 14:20 | RAD_ITS ---
PROCEDURE: Lumbar spine radiographs, five views REASON FOR EXAM: Back pain TECHNIQUE: Five views of the lumbar spine were obtained. COMPARISON: None. FINDINGS: Five views of the lumbar spine were obtained. Bones are osteopenic. Included portions of the pelvis and SI joints are intact. There is mild leftward convex curvature of the mid lumbar spine on the AP view. Grade 1 retrolisthesis of L1 relative to L2 and L2 relative to L3. Grade 1 anterolisthesis of L4 relative to L5. No acute lumbar vertebral body fracture. Moderate degenerative disc disease at L4-5 and L5-S1. Moderate atherosclerotic calcification of the lower abdominal aorta. RAD/L/S Spine Min 4 Views IMPRESSION: Osteopenia. No acute bony abnormality of the lumbar spine. Moderate degenerative disc disease at L4-5 and L5-S1. Diffuse degenerative fac et changes. If there is persistent pain or clinical concern, short-term follow-up MRI evaluation may be considered. Reading Location: [id number]
== END | disposition home or self-care (01) ==
LOC: MTRAD 14:17
PROVIDERS: PCP Family Medicine; Referring Provider Family Medicine; Visit Provider Family Medicine
DX: M54.9 Dorsalgia, unspecified (principal)
CPT/HCPCS: 72110

== ENCOUNTER 2024-06-13 09:00 | Outpatient (RCR) | payer MEDICARE, OTHER, SELFPAY ==
--- NOTE | 2024-05-16 11:55 | HP.PTEVAL_ITS ---
Patient's Visit Information Visit Information Visit Information: STEPHANY CASSIDY is a 79 year old M referred to Physical Therapy by Dr. Papa Person MD with a diagnosis of LOW BACK PAIN AND FALLS. Date of Evaluation: 05/16/24 Physical Therapist: Stephany Seo PT, Cert MDT, OCS Visit Plan Frequency: 2x /Week Duration: 4 Weeks Plan: PRECAUTION: OSTEOPOROSIS PT INTERVENTIONS DLS,POSTURAL ,LE FLEXABILITY , BLE STRENGTHENING ,ACTIVITY MODIFICATION AND MODALITIES Subjective Subjective: This 79 y/o male presents to physical therapy with low back pain. Patient has lumbar radiculopathy many years. Seen DR rosemarie GAMBLE and had x- rays showed Grade 1 retrolisthesis of L1 relative to L2 and L2 relative to L3. Grade 1 anterolisthesis of L4 relative to L5, Moderate degenerative disc disease at L4-5 and L5-S1. Location of symptoms bilateral hamstrings. Aggravating factors walking/standing . Alleviating factors sitting and rest. Patient denies paresthesia/tingling -. Bowel/bladder -.Coughing/sneezing -. Patient has seen pain management~ 2 months ago helped pain. No prior tx in past.Patient condition affects QOL and function. Patient goals to decrease pain. SOCIAL: VOCATION: retired Pain Bilateral Back: Pain Intensity (Out of 10): 4 Pain Intensity Range: 10 Objective Objective: POSTURE: mod thoracic kyphosis ,trunk flexed PALPATION: unremarkable NEURO: denies paresthesia/tingling,reflexes L3-4,L4-5 ,L5-S 1 1/3 SYMMETRIES: align FLEXABILITY: hamstrings min tight LUMBAR ROM: flexion min/mod loss ,extension mod/severe loss pain ,side glide slides mod MMT: quads/hams 4/5 ,hip flexion 4-/5 ,ankle 5/5 Special Tests L/S Slump test left side: Negative L/S Slump test right side: Negative L/S Left Straight Leg Raise: Negative L/S Right Straight Leg Raise: Negative Lumbar Standing: Flexion - Mechanical Response: No effect Lumbar Standing: Flexion - Symptoms During Testing: No effect Lumbar Standing: Flexion - Symptoms After Testing: No effect Lumbar Standing: Extension - Mechanical Response: No effect Lumbar Standing: Extension - Symptoms During Testing: Increases Lumbar Standing: Extension - Symptoms After Testing: No worse Lumbar Standing: Right Side Glides - Mechanical Response: No effect Lumbar Standing: Right Side [place] - Symptoms During Testing: No effect Lumbar Standing: Right Side [place] - Symptoms After Testing: No effect Lumbar Standing: Left Side [place] - Mechanical Response: No effect Lumbar Standing: Left Side [place] - Symptoms During Testing: No effect Lumbar Standing: Left Side [place] - Symptoms After Testing: No effect Balance/Special Test Scores Functional Gait Assessment Score: 30 % Disability: 0 CATSIB Score (Max score 120 seconds): 120 Oswestry Low Back Score: 23 Goals Goal 1:: Patient to be I with HEP for back Goal Time Frame: 4-6 Weeks Goal 2:: Patient to improve lumbar ROM for function of recovery for ADLS Goal Time Frame: 4-6 Weeks Goal 3:: Patient to improve back oswestry by 3-5 points Goal Time Frame: 4-6 Weeks Goal 4:: Patient to demonstrate 40-50% improvement with less pain and function Goal Time Frame: 4-6 Weeks Goal 5:: Patient be able to walk /stand > 10mins for ADLS and house work with less pain Goal Time Frame: 4-6 Weeks Rehabilitation Potential Physical Therapy Diagnosis: This patient has stenosis with lumbar with pain worse with walking /standing < 5 mins better with sitting also has h/o osteoporosis thus benefit from skilled PT Rehabilitation Potential: Good Anticipated Interventions Patient/Client Instruction: Educate patient on: Condition and Plan of Care For the Purpose of:: To decrease pain, To increase ROM, To improve muscle performance and motor function, To increase tolerance to activity/condition/position, To improve ability of physical actions for home/community/work/leisure, To improve health of tissue, To decrease soft tissue restriction, To increase flexibility/ROM, To improve endurance, To improve balance, To reduce risk of recurrence and To improve health and function Therapeutic Exercise to Include: Strength training, Postural training, Flexibilty training and Dynamic Lumbar Stabilization Comment: BLE For the Purpose of:: To decrease pain, To improve muscle performance and motor function, To increase tolerance to activity/condition/position, To improve ability of physical actions for home/community/work/leisure, To improve health of tissue, To decrease soft tissue restriction, To increase flexibility/ROM, To improve health and function and To improve tolerance to ADL's TENS: Yes IF ES: Yes Cryotherapy (ice pack, ice massage): Yes Thermo therapy (hot pack): Yes Ultrasound (thermal/non thermal): Yes For the Purpose of:: To decrease pain, To improve nutrient delivery to tissue, To increase oxygenation perfusion, To improve health of tissue and To decrease soft tissue restriction Text: Thank you for the opportunity to evaluate your patient. For Medicare and Medicare HMO plans, please review the plan of care and approve it. It will need to be FAXED BACK to us at [phone] for Medicare purposes. For Medicare only, by signing this I certify the plan of care. Please let me know if there are questions or concerns regarding this plan of care. Physician Signature: Date:
--- NOTE | 2024-06-13 09:26 | HP.PTDCSUM ---
Discharge Summary D/C summary: It has been my pleasure to treat STEPHANY CASSIDY referred by Dr. Papa Person MD, with the diagnosis of LOW BACK PAIN for a total of 5 visit(s). Discharge Date: 06/13/24 Please see the following information for a summary of their discharge status. Subjective Subjective: Pain is some better ,some better ~ 1 year ago Patient will do ex's at home Pain Bilateral Back: Pain Intensity (Out of 10): 2 Overall Improvement % Improvement: 25 Objective Objective/Function: POSTURE: mod thoracic kyphosis ,trunk flexed PALPATION: unremarkable NEURO: denies paresthesia/tingling,reflexes L3-4,L4-5 ,L5-S 1 03/23 SYMMETRIES: align FLEXABILITY: hamstrings min tight LUMBAR ROM: flexion min/mod loss ,extension mod/severe loss pain ,side glide slides mod MMT: quads/hams 4/5 ,hip flexion 4-/5 ,ankle 5/5 Goals Goal 1:: Patient to be I with HEP for back Goal Progress: Goal Met Goal 2:: Patient to improve lumbar ROM for function of recovery for ADLS Goal Progress: Progressing Goal 3:: Patient to improve back oswestry by 3-5 points Goal Progress: Progressing Goal 4:: Patient to demonstrate 40-50% improvement with less pain and function Goal Progress: Progressing Goal 5:: Patient be able to walk /stand > 10mins for ADLS and house work with less pain Goal Progress: Progressing Plan Plan: D/C D/C Information Discharge Comments: HEP d/c sentence: If there are questions or concerns regarding this patient's physical therapy, please feel free to call me at [phone]. Thank you for the referral of this patient. Sincerely, Stephany Seo, PT, Cert MDT, OCS Balance/Gait/Functional tests Balance/Special Test Scores Functional Gait Assessment Score: 30 % Disability: 0 CATSIB Score (Max score 120 seconds): 120 Oswestry Low Back Score: 21 Improvement % Improvement: 25
== END 2024-06-13 19:00 | disposition home or self-care (01) ==
LOC: PT 09:00
PROVIDERS: PCP Family Medicine; Referring Provider Family Medicine; Visit Provider Family Medicine
DX: M54.50 Low back pain, unspecified (principal); R29.6 Repeated falls
CPT/HCPCS: 97110; 97162; 97530

== ENCOUNTER → 2024-08-20 | Outpatient (CLI) | payer MEDICARE, OTHER, SELFPAY ==
[2024-08-20 12:48] LABS: ALB/GLOB Ratio 1.4 RATIO (0.9-2.4); AST(SGOT) 30 U/L (<=37); Alanine Aminotransfer ALT/SGPT 28 U/L (<=46); Alkaline Phosphatase 38 U/L (40-129); Anion Gap 11 (5-15); BUN 26 mg/dL (4-19); BUN/Creat Ratio 26.3 RATIO (10-20); Calcium,Total 9.7 mg/dL (7.6-11.0); Carbon Dioxide 24.6 mmol/L (21.0-32.0); Chloride 104 mmol/L (98-108); Cholesterol 193 mg/dL (<=200); Creatinine, Serum 0.97 mg/dL (0.70-1.20); EST Glomerular Filtration Rate 79 (>60); Globulin 2.8 g/dL (2.2-4.2); Glucose 103 mg/dL (70-99); High Density Lipoprotein 48 mg/dL; Low Density Lipoprotein Calc. 122 mg/dL; Potassium 4.1 mmol/L (3.3-5.1); Protein, Total 6.8 g/dL (5.9-8.4); Sodium Level 140 mmol/L (133-145); Total Bilirubin 0.48 mg/dL (0.00-1.30); Triglycerides 119 mg/dL; Very Low Density Lipoprotein 24 mg/dL (5-40); cholesterol:hdl ratio screen 4.05
== END | disposition home or self-care (01) ==
LOC: MTLAB 09:36
PROVIDERS: PCP Family Medicine; Referring Provider Family Medicine; Visit Provider Family Medicine
DX: I10 Essential (primary) hypertension (principal)
CPT/HCPCS: 36415; 80053; 80061

== ENCOUNTER → 2024-09-17 | Outpatient (CLI) | payer MEDICARE, OTHER, SELFPAY ==
--- NOTE | 2024-09-17 08:42 | MRI_ITS ---
PROCEDURE: SPINE LUMBAR (ROUTINE), 09/17/2024 REASON FOR EXAM: PAIN, STENOSIS, SPONDYLOLISTHESIS TECHNIQUE: Multisequence multiplanar MR of the lumbar spine was performed without IV contrast. COMPARISON: 09/06/2024 FINDINGS: Vertebral body heights are preserved. Heterogeneous marrow signal without convincing discrete/focal or destructive lesion identified. Similar grade 1/2 anterolisthesis of L4-L5, approximating 9 mm with associated disc uncovering. Conus medullaris terminates normally at the L1 level. Redundant appearance of the cauda equina above the level of the L4-L5 stenosis spinal canal stenoses described above. Diffuse disc desiccation. Additional level by level findings as below: L1-2: Incompletely imaged L1 vertebral body on axial imaging; region is imaged on all sagittal sequences obtained. Mild diffuse disc bulging. No significant spinal canal or foraminal stenosis. L2-3: Diffuse disc bulging with superimposed disc protrusions in the bilateral foraminal and subarticular regions. No significant spinal canal or foraminal stenosis.. Mild facet arthropathy. L3-4: Diffuse disc bulging with superimposed disc protrusions in the [id number]-LEFT foraminal and subarticular regions. Facet arthropathy with ligamentum flavum hypertrophy. Mild/moderate spinal canal stenosis with incomplete effacement of CSF. No significant foraminal stenosis. Narrowing of the [id number]-LEFT lateral recesses. L4-5: Anterolisthesis as above with disc uncovering. Facet arthropathy with ligamentum flavum hypertrophy. Disc height loss with diffuse disc bulging. Severe focal spinal canal stenosis with complete effacement of CSF and narrowing of the spinal canal to roughly 9 x 6 mm. Effacement of the bilateral lateral recesses. Mild/moderate RIGHT and mild LEFT foraminal stenosis.. L5-S1: Severe disc height loss with diffuse disc bulging and superimposed LEFT foraminal disc protrusion. Facet arthropathy. No significant spinal canal stenosis. Moderate LEFT foraminal stenosis. No significant RIGHT foraminal stenosis. 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 Diverticulosis. Partially imaged T2 bright at least 14 x 8 mm RIGHT renal presumed cyst, technically incompletely characterized. Atherosclerosis. MRI/Spine Lumbar (Routine) IMPRESSION: 1. Multilevel spondylosis as described. Spinal canal stenoses up to severe at L4-L5 with redundant appearance of the more cranial cauda equina. Foraminal stenoses up to moderate on the LEFT at L5-S1. 2. Diffusely heterogeneous marrow signal. Correlate for possible causes of mar row recruitment such as intense exercise, smoking, chronic anemia, chronic pulmonary disease, diabetes, or obesity. If unexplaine d, recommend clinical follow-up as an early infiltrative process may appear similarly however there is no clearly discrete or destructive bony lesion identified. 3. Additional description as above. Reading Location: [id number]
== END | disposition home or self-care (01) ==
LOC: MRI 08:39
PROVIDERS: PCP Family Medicine; Referring Provider Student in an Organized Health Care Education/Training Program; Visit Provider Student in an Organized Health Care Education/Training Program
DX: M43.16 Spondylolisthesis, lumbar region (principal); M48.062 Spinal stenosis, lumbar region with neurogenic claudication; M51.360 Other intervertebral disc degeneration, lumbar region with discogenic back pain only
CPT/HCPCS: 72148

== ENCOUNTER → 2024-11-20 | Outpatient (CLI) | payer MEDICARE, OTHER, SELFPAY ==
--- NOTE | 2024-11-20 15:07 | RAD_ITS ---
EXAM: XR Bilateral Ribs and AP Chest, 3 or More Views CLINICAL INDICATION: RIB PAIN TECHNIQUE: Frontal and oblique views of the bilateral ribs and frontal view of the chest. COMPARISON: No relevant prior studies available. FINDINGS: LUNGS AND PLEURAL SPACES: Bibasilar atelectasis or pneumonia. Hyperlucent lungs. Flattening of the diaphragm. No pneumothorax. HEART: Unremarkable. No cardiomegaly. MEDIASTINUM: Unremarkable. Normal mediastinal contour. BONES/JOINTS: Cortical irregularity of the right 6th and 7th ribs could represent nondisplaced fractures. RAD/Ribs Lyndon Min 4V w/PA Chest IMPRESSION: 1. Bibasilar atelectasis or pneumonia. 2. Cortical irregularity of the right 6th and 7th ribs could represent nondisp laced fractures. 3. Suggestion of COPD. Reading Location: [id number]
--- NOTE | 2024-11-20 15:07 | RAD_ITS ---
PROCEDURE: SHOULDER MIN 2 VIEWS 11/20/2024 REASON FOR EXAM: SHOULDER PAIN TECHNIQUE: Procedure Code: RADSH Modality: DX Procedure: SHOULDER MIN 2 VIEWS Laterality: Right COMPARISON: March 28, 2024 contralateral shoulder FINDINGS: Bones: Decreased bone mineralization. No fracture Joints: Normal alignment. Mild degenerative changes. Soft tissues: Soft tissues are unremarkable. RAD/Shoulder min 2 Views IMPRESSION: No acute abnormality. Mild osteoarthritis. Reading Location: [id number]
--- NOTE | 2024-11-20 15:08 | RAD_ITS ---
EXAM: XR Lumbosacral Spine, 2 or 3 Views CLINICAL INDICATION: BACK PAIN TECHNIQUE: Frontal and lateral views of the lumbar spine and sacrum. COMPARISON: No relevant prior studies available. FINDINGS: VERTEBRAE: Anterior spondylolisthesis of L4 over L5 by 11 mm. Degenerative facet arthropathy throughout the lumbar spine, most prominent in the lower lumbar spine. No acute fracture. SACRUM/COCCYX: Unremarkable as visualized. No acute fracture. DISC SPACES: Degenerative disc disease throughout the lumbar spine. SOFT TISSUES: Unremarkable. RAD/Lumbar Spine 2 or 3 Views IMPRESSION: 1. Anterior spondylolisthesis of L4 over L5 by 11 mm. 2. If symptoms persist, further evaluation with MRI is recommended. 3. Degenerative changes lumbar spine as described. Reading Location: [id number]
--- NOTE | 2024-11-20 15:08 | RAD_ITS ---
EXAM: XR Thoracic Spine, 2 Views CLINICAL INDICATION: BACK PAIN TECHNIQUE: Frontal and lateral views of the thoracic spine. COMPARISON: No relevant prior studies available. FINDINGS: VERTEBRAE: Degenerative disc disease and facet arthropathy throughout the thoracic spine. Normal alignment. No acute fracture. DISC SPACES: See above. SOFT TISSUES: Unremarkable. RAD/Thoracic Spine 2 Views IMPRESSION: 1. No acute fracture. 2. Degenerative changes thoracic spine as described. 3. If symptoms persist, further evaluation with MRI is recommended. Reading Location: [id number]
== END | disposition home or self-care (01) ==
PROVIDERS: PCP Family Medicine; Referring Provider Family Medicine; Visit Provider Family Medicine
DX: M25.511 Pain in right shoulder (principal); R07.81 Pleurodynia; M54.9 Dorsalgia, unspecified
CPT/HCPCS: 71111; 72070; 72100; 73030